=== PATIENT | male | born 1975 | race American Indian/Alaskan Native ===

== ENCOUNTER 2019-12-11 14:59 | Emergency (ER) | payer OTHER ==
[2019-12-11] MEDS ORDERED: Sodium Chloride 0.9% 1,000 ML IV SCH ×2 (15:45→17:45)
--- NOTE | 2019-12-11 17:20 | EDM.PDOC ---
ED HPI GENERAL MEDICAL PROBLEM - General Chief Complaint: Diabetic Complaint Stated Complaint: HIGH SUGAR Time Seen by Provider: 12/11/19 15:10 Source of Information: Reports: Patient History Limitations: Reports: No Limitations - History of Present Illness INITIAL COMMENTS - FREE TEXT/NARRATIVE: states he was at work when he developed blurred vision weakness and collapsed , feeling very weak has increased thirst and drinking has history of diabetes diagnoses 5yrs ago has not been taking metformin as prescribed and lisinopril and not keeping healthy diet states symptoms he had today was similar to ne he had 5yrs ago when he was initialy diagnosed with diabetes Onset: Sudden Onset Date: 12/12/19 Duration: Getting Worse Location: Reports: Generalized Quality: Reports: Burning Improves with: Reports: Medication Worsens with: Reports: Eating Context: Reports: Other (known diabetic not taking medication as prescribed) Associated Symptoms: Reports: Loss of Appetite, Malaise, Nausea/Vomiting, Weakness L shoulder Pain Score (Numeric/FACES): 5 - Related Data Allergies Allergy/AdvReac Type Severity Reaction Status Date / Time No Known Allergies Allergy Verified 12/11/19 15:12 Home Meds: Home Meds Lisinopril [Zestril] 10 mg PO DAILY #30 tablet 12/11/19 [Rx] metFORMIN HCl [Metformin HCl] 500 mg PO BID #60 tablet 12/11/19 [Rx] Past Medical History - Past Health History Medical/Surgical History: Denies Medical/Surgical History Cardiovascular History: Reports: Hypertension Neurological History: Reports: Concussion Endocrine/Metabolic History: Reports: Diabetes, Type II Other Endocrine/Metabolic History: 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 Social & Family History - Family History Family Medical History: Noncontributory - Tobacco Use Smoking Status *Q: Never Smoker - Caffeine Use Caffeine Use: Reports: Coffee, Energy Drinks, Soda - Alcohol Use Days Per Week of Alcohol Use: 3 Number of Drinks Per Day: 6 Total Drinks Per Week: 18 - Recreational Drug Use Recreational Drug Use: Yes Drug Use in Last 12 Months: No ED ROS GENERAL - Review of Systems Review Of Systems: See Below Constitutional: Reports: Malaise, Weakness HEENT: Reports: No Symptoms Respiratory: Reports: No Symptoms Cardiovascular: Reports: No Symptoms Endocrine: Reports: Fatigue ED EXAM GENERAL NO PERIP PULSE - Physical Exam Exam: See Below Exam Limited By: No Limitations General Appearance: Alert, WD/WN Eye Exam: Bilateral Eye: EOMI Ears: Normal External Exam Nose: Normal Inspection Throat/Mouth: Other (dry mucous membranes) Head: Atraumatic. No: Sinus Tenderness Neck: Supple, Non-Tender Respiratory/Chest: Lungs Clear, Normal Breath Sounds Cardiovascular: Regular Rate, Rhythm. No: No Edema GI/Abdominal: Soft, Non-Tender Back Exam: Full Range of Motion Extremities: Normal Range of Motion, No Pedal Edema Neurological: Alert, Oriented, CN II-XII Intact Skin Exam: Warm, Dry Lymphatic: No Adenopathy Course - Vital Signs Last Recorded V/S: Last Vital Signs Temp 36.9 C 12/11/19 15:05 Pulse 111 H 12/11/19 19:53 Resp 18 12/11/19 19:53 BP 144/95 H 12/11/19 19:53 Pulse Ox 100 12/11/19 19:53 - Orders/Labs/Meds Orders: Active Orders 24 hr Category Date Time Status EKG Documentation Completion [RC] ASDIRECTED Care 12/11/19 17:40 Active Glucose [Blood Glucose Check, Bedside] [RC] ONETIME Care 12/11/19 19:00 Active EKG 12 Lead [EK] Routine Ther 12/11/19 17:39 Stop Req Labs: Laboratory Tests 12/11/19 12/11/19 12/11/19 Range/Units 15:30 15:30 15:30 WBC 14.2 H (4.5-12.0) X10-3/uL RBC 3.40 L (4.30-5.75) x10(6)uL Hgb 11.4 L D (13.5-17.8) g/dL Hct 33.4 D (30.0-51.3) % MCV 98.3 H (80-96) fL MCH 33.6 (27.7-33.6) pg MCHC 34.2 (32.2-35.4) g/dL RDW 12.4 (11.5-15.5) % Plt Count 312 (125-369) X10(3)uL MPV 9.0 (7.4-10.4) fL Add Manual Diff Yes Neutrophils % (Manual) 70 (46-82) % Band Neutrophils % 6 (0-6) % Lymphocytes % (Manual) 18 (13-37) % Monocytes % (Manual) 5 (4-12) % Eosinophils % (Manual) 1 (0-5) % PT 10.3 (9.0-11.1) sec INR 1.06 (1.00-1.24) Sodium 135 (135-145) mmol/L Potassium 4.8 (3.5-5.3) mmol/L Chloride 98 L D (100-110) mmol/L Carbon Dioxide 21 (21-32) mmol/L BUN 30 H D (7-18) mg/dL Creatinine 0.8 (0.70-1.30) mg/dL Est Cr Clr Drug Dosing 111.31 mL/min Estimated GFR (MDRD) > 60 (>60) BUN/Creatinine Ratio 37.5 H (9-20) Glucose 342 H D (80-116) mg/dL Hemoglobin A1c (<5.7) % Calcium 8.0 L (8.6-10.2) mg/dL Urine Color (YELLOW) Urine Appearance (CLEAR) Urine pH (5.0-6.5) Ur Specific [place] (1.010-1.025) Urine Protein (NEGATIVE) mg/dL Urine Glucose (UA) (NORMAL) mg/dL Urine Ketones (NEGATIVE) mg/dL Urine Occult Blood (NEGATIVE) Urine Nitrite (NEGATIVE) Urine Bilirubin (NEGATIVE) Urine Urobilinogen (NEGATIVE) mg/dL Ur Leukocyte Esterase (NEGATIVE) Urine RBC (0-5) Urine WBC (0-5) Ur Squamous Epith Cells (NS,R,O) Urine Bacteria (NS) 12/11/19 12/11/19 Range/Units 15:30 17:07 WBC (4.5-12.0) X10-3/uL RBC (4.30-5.75) x10(6)uL Hgb (13.5-17.8) g/dL Hct (30.0-51.3) % MCV (80-96) fL MCH (27.7-33.6) pg MCHC (32.2-35.4) g/dL RDW (11.5-15.5) % Plt Count (125-369) X10(3)uL MPV (7.4-10.4) fL Add Manual Diff Neutrophils % (Manual) (46-82) % Band Neutrophils % (0-6) % Lymphocytes % (Manual) (13-37) % Monocytes % (Manual) (4-12) % Eosinophils % (Manual) (0-5) % PT (9.0-11.1) sec INR (1.00-1.24) Sodium (135-145) mmol/L Potassium (3.5-5.3) mmol/L Chloride (100-110) mmol/L Carbon Dioxide (21-32) mmol/L BUN (7-18) mg/dL Creatinine (0.70-1.30) mg/dL Est Cr Clr Drug Dosing mL/min Estimated GFR (MDRD) (>60) BUN/Creatinine Ratio (9-20) Glucose (80-116) mg/dL Hemoglobin A1c 9.6 H (<5.7) % Calcium (8.6-10.2) mg/dL Urine Color Yellow (YELLOW) Urine Appearance Clear (CLEAR) Urine pH 5.0 (5.0-6.5) Ur Specific [place] 1.020 (1.010-1.025) Urine Protein Negative (NEGATIVE) mg/dL Urine Glucose (UA) >1000 H (NORMAL) mg/dL Urine Ketones 50 H (NEGATIVE) mg/dL Urine Occult Blood Negative (NEGATIVE) Urine Nitrite Negative (NEGATIVE) Urine Bilirubin Negative (NEGATIVE) Urine Urobilinogen Normal (NEGATIVE) mg/dL Ur Leukocyte Esterase Negative (NEGATIVE) Urine RBC 0-5 (0-5) Urine WBC 0-5 (0-5) Ur Squamous Epith Cells Occasional (NS,R,O) Urine Bacteria Few H (NS) Meds: Medications Discontinued Medications Generic Name Dose Route Start Last Admin Trade Name Freq PRN Reason Stop Dose Admin Sodium Chloride 1,000 mls @ 999 mls/hr 12/11/19 15:45 12/11/19 16:30 Normal Saline IV 999 mls/hr ASDIRECTED INDU Administration Sodium Chloride 1,000 mls @ 999 mls/hr 12/11/19 17:45 12/11/19 18:00 Normal Saline IV 999 mls/hr ASDIRECTED IDNU Administration Insulin Human Regular 10 unit 12/11/19 17:37 12/11/19 18:24 Humulin R SUBCUT 12/11/19 17:38 10 units ONETIME ONE Administration Metformin HCl 500 mg 12/11/19 19:21 12/11/19 19:42 Glucophage PO 12/11/19 19:22 500 mg ONETIME ONE Administration - Re-Assessments/Exams Free Text/Narrative Re-Assessment/Exam: 12/11/19 19:18 pt given IVF 2 liters, SC insulin 10 units regular insulin BS decreased to 220 will be sent home on metformin and lisinopril and to FU with PCP Departure - Departure Time of Disposition: 19:20 Disposition: Home, Self-Care 01 Clinical Impression: Acute hyperglycemia, Dehydration, Blurred vision, bilateral, Syncope and collapse - Discharge Information *PRESCRIPTION DRUG MONITORING PROGRAM REVIEWED*: Not Applicable *COPY OF PRESCRIPTION DRUG MONITORING REPORT IN PATIENT KAIN: Not Applicable Prescriptions: Lisinopril [Zestril] 10 mg PO DAILY #30 tablet metFORMIN HCl [Metformin HCl] 500 mg PO BID #60 tablet Instructions: Hyperglycemia, [id number], Metformin tablets, Diabetes Mellitus and Nutrition, Adult Referrals: PCP,None [Primary Care Provider] - Forms: ED Department Discharge Additional Instructions: Activity as tolerated. Diabetic diet. Watch sugar intake. Metformin 500mg twice a day. Lisinopril 10mg daily. Follow up with your regular MD at clinic Saturday, call for time. Sepsis Event Note - Evaluation Sepsis Screening Result: No Definite Risk - Focused Exam Vital Signs: Vital Signs Pulse Resp BP Pulse Ox 12/11/19 19:53 111 H 18 144/95 H 100 12/11/19 18:50 114 H 18 147/77 H 100 Date Exam was Performed: 12/12/19 Time Exam was Performed: 06:39 - My Orders Last 24 Hours: My Active Orders 12/11/19 17:39 EKG 12 Lead [EK] Routine 12/11/19 17:40 EKG Documentation Completion [RC] ASDIRECTED 12/11/19 19:00 Glucose [Blood Glucose Check, Bedside] [RC] ONETIME - Assessment/Plan Last 24 Hours: My Active Orders 12/11/19 17:39 EKG 12 Lead [EK] Routine 12/11/19 17:40 EKG Documentation Completion [RC] ASDIRECTED 12/11/19 19:00 Glucose [Blood Glucose Check, Bedside] [RC] ONETIME
[2019-12-11] MEDS ORDERED: Insulin Regular, Human 100 Units/ML 3 ML Vial SUBCUT ONE (17:37)
[2019-12-11] MEDS ORDERED: metFORMIN 500 MG Tab PO ONE (19:21)
[2019-12-11 20:54] LABS: HEMOGLOBIN A1C 9.6 % (<5.7)
[2019-12-11 21:44] VITALS: BP 144/95; PULSE 111
== END 2019-12-11 19:55 | disposition home or self-care (01) ==
LOC: FB.ED 14:59
DX: E11.65 Type 2 diabetes mellitus with hyperglycemia (principal); E86.0 Dehydration; H53.8 Other visual disturbances; I10 Essential (primary) hypertension; Z79.84 Long term (current) use of oral hypoglycemic drugs; Z79.899 Other long term (current) drug therapy
CPT/HCPCS: 36415; 80048; 81001; 83036; 85025; 85610; 96360; 96361; 99285-25; A9270-GY; J1815-GY; J7030

== ENCOUNTER 2021-02-16 17:10 | Emergency (ER) | payer OTHER ==
[2021-02-16 17:31] VITALS: BP 131/81; PULSE 94
[2021-02-16] MEDS ORDERED: levETIRAcetam 500 MG Tab PO STA (18:33)
--- NOTE | 2021-02-16 18:33 | EDM.PDOC ---
ED HPI GENERAL MEDICAL PROBLEM - General Chief Complaint: Neurological Problem Stated Complaint: SEZIURES Time Seen by Provider: 02/16/21 17:15 Source of Information: Reports: Patient History Limitations: Reports: No Limitations - History of Present Illness INITIAL COMMENTS - FREE TEXT/NARRATIVE: Patient presented to the ED via EMS because of a witnessed seizure while at work. He has generalized body jerking for 2 minutes. There was no post ictal confusion or headache. He drinks on a daily basis, denies having any street drug use. 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 Social & Family History - Family History Family Medical History: No Pertinent Family History - Caffeine Use Caffeine Use: Reports: Coffee, Energy Drinks, Soda ED ROS GENERAL - Review of Systems Review Of Systems: See Below Constitutional: Reports: No Symptoms HEENT: Reports: No Symptoms Respiratory: Reports: No Symptoms Cardiovascular: Reports: No Symptoms Endocrine: Reports: No Symptoms GI/Abdominal: Reports: No Symptoms : Reports: No Symptoms Musculoskeletal: Reports: No Symptoms Skin: Reports: No Symptoms Neurological: Reports: Seizure Psychiatric: Reports: No Symptoms Hematologic/Lymphatic: Reports: No Symptoms ED EXAM, NEURO - Physical Exam Exam: See Below Exam Limited By: No Limitations General Appearance: Alert, No Apparent Distress Eye Exam: Bilateral Eye: PERRL Ears: Normal External Exam, Normal Canal Nose: Normal Inspection, Normal Mucosa, No Blood Throat/Mouth: Normal Inspection, Normal Lips, Normal Teeth Head Exam: Atraumatic, Normocephalic Neck: Normal Inspection, Supple, Non-Tender, Full Range of Motion Respiratory/Chest: No Respiratory Distress, Lungs Clear, Normal Breath Sounds Cardiovascular: Normal Peripheral Pulses, Regular Rate, Rhythm, No Edema, No Gallop, No JVD, No Murmur GI/Abdominal: Normal Bowel Sounds, Soft, Non-Tender, No Organomegaly Neurological: Alert, Normal Mood/Affect, Normal Dorsiflexion, CN II-XII Intact, Normal Plantar Flexion, Normal Gait Course - Vital Signs Text/Narrative:: Lab and Head CT result was reviewed and discussed with patient Keppra 1000 mg PO x1 Last Recorded V/S: Last Vital Signs Temp 36.8 C 02/16/21 17:10 Pulse 94 02/16/21 17:10 Resp 20 02/16/21 17:10 BP 131/81 02/16/21 17:10 Pulse Ox 100 02/16/21 17:10 - Orders/Labs/Meds Orders: Active Orders 24 hr Category Date Time Status Head wo Cont [CT] Stat Exams 02/16/21 17:28 Taken Labs: Laboratory Tests 02/16/21 02/16/21 02/16/21 Range/Units 17:35 17:35 17:35 WBC 10.6 H (3.2-10.1) x10-3/uL RBC 4.31 (3.90-5.90) x10(6)uL Hgb 12.4 L (12.9-17.7) g/dL Hct 37.9 L (38.3-50.1) % MCV 88.0 (80.8-98.7) fL MCH 28.8 (27.0-33.3) pg MCHC 32.8 (28.7-35.3) g/dL RDW 15.6 H (12.4-15.0) % Plt Count 321 (117-477) x10(3)uL MPV 8.5 (6.7-11.0) fL Neut % (Auto) 64.4 (40.3-71.8) % Lymph % (Auto) 19.7 (15.8-45.3) % [place] % (Auto) 12.9 (5.5-15.2) % Eos % (Auto) 2.2 (0.1-6.8) % Baso % (Auto) 0.8 (0.3-3.8) % Neut # (Auto) 6.8 (1.7-6.9) x10-3/uL Lymph # (Auto) 2.1 (0.5-4.5) x10-3/uL [place] # (Auto) 1.4 H (0.0-1.2) x10-3/uL Eos # (Auto) 0.2 (0.0-0.6) x10-3/uL Baso # (Auto) 0.1 (0.0-0.3) x10-3/uL Sodium 128 L (135-145) mmol/L Potassium 3.8 D (3.5-5.3) mmol/L Chloride 93 L D (100-110) mmol/L Carbon Dioxide 20 L (21-32) mmol/L BUN 10 D (7-18) mg/dL Creatinine 1.2 (0.70-1.30) mg/dL Est Cr Clr Drug Dosing 73.44 mL/min Estimated GFR (MDRD) > 60 (>60) BUN/Creatinine Ratio 8.3 L (9-20) Glucose 182 H D (80-116) mg/dL Calcium 8.2 L (8.6-10.2) mg/dL Total Bilirubin 0.7 (0.1-1.3) mg/dL AST 319 H* D (5-25) IU/L ALT 258 H* D (12-36) U/L Alkaline Phosphatase 91 (56-112) IU/L Total Protein 7.3 (6.0-8.0) g/dL Albumin 3.7 (3.5-5.2) g/dL Globulin 3.6 g/dL Albumin/Globulin Ratio 1.0 Urine Opiates Screen (NEGATIVE) Ur Oxycodone Screen (NEGATIVE) Ur Propoxyphene Screen (NEGATIVE) Ur Barbituates Screen (NEGATIVE) Ur Tricyclics Screen (NEGATIVE) Ur Phencyclidine Scrn (NEGATIVE) Ur Amphetamine Screen (NEGATIVE) Urine MDMA Screen (NEGATIVE) U Benzodiazepines Scrn (NEGATIVE) U Cocaine Metab Screen (NEGATIVE) U Marijuana (THC) Screen (NEGATIVE) Ethyl Alcohol < 0.03 (<0.03) % 02/16/21 Range/Units 18:10 WBC (3.2-10.1) x10-3/uL RBC (3.90-5.90) x10(6)uL Hgb (12.9-17.7) g/dL Hct (38.3-50.1) % MCV (80.8-98.7) fL MCH (27.0-33.3) pg MCHC (28.7-35.3) g/dL RDW (12.4-15.0) % Plt Count (117-477) x10(3)uL MPV (6.7-11.0) fL Neut % (Auto) (40.3-71.8) % Lymph % (Auto) (15.8-45.3) % [place] % (Auto) (5.5-15.2) % Eos % (Auto) (0.1-6.8) % Baso % (Auto) (0.3-3.8) % Neut # (Auto) (1.7-6.9) x10-3/uL Lymph # (Auto) (0.5-4.5) x10-3/uL [place] # (Auto) (0.0-1.2) x10-3/uL Eos # (Auto) (0.0-0.6) x10-3/uL Baso # (Auto) (0.0-0.3) x10-3/uL Sodium (135-145) mmol/L Potassium (3.5-5.3) mmol/L Chloride (100-110) mmol/L Carbon Dioxide (21-32) mmol/L BUN (7-18) mg/dL Creatinine (0.70-1.30) mg/dL Est Cr Clr Drug Dosing mL/min Estimated GFR (MDRD) (>60) BUN/Creatinine Ratio (9-20) Glucose (80-116) mg/dL Calcium (8.6-10.2) mg/dL Total Bilirubin (0.1-1.3) mg/dL AST (5-25) IU/L ALT (12-36) U/L Alkaline Phosphatase (56-112) IU/L Total Protein (6.0-8.0) g/dL Albumin (3.5-5.2) g/dL Globulin g/dL Albumin/Globulin Ratio Urine Opiates Screen Negative (NEGATIVE) Ur Oxycodone Screen Negative (NEGATIVE) Ur Propoxyphene Screen Negative (NEGATIVE) Ur Barbituates Screen Negative (NEGATIVE) Ur Tricyclics Screen Negative (NEGATIVE) Ur Phencyclidine Scrn Negative (NEGATIVE) Ur Amphetamine Screen Negative (NEGATIVE) Urine MDMA Screen Negative (NEGATIVE) U Benzodiazepines Scrn Negative (NEGATIVE) U Cocaine Metab Screen Negative (NEGATIVE) U Marijuana (THC) Screen Negative (NEGATIVE) Ethyl Alcohol (<0.03) % Meds: Medications Discontinued Medications Generic Name Dose Route Start Last Admin Trade Name Freq PRN Reason Stop Dose Admin Levetiracetam 1,000 mg 02/16/21 18:33 02/16/21 18:39 Levetiracetam 500 Mg Tab PO 02/16/21 18:34 1,000 mg NOW STA Administration Departure - Departure Time of Disposition: 19:00 Disposition: Home, Self-Care 01 Condition: Good Clinical Impression: Seizure, Alcoholic liver disease - Discharge Information Instructions: Alcoholic Liver Disease, [id number], Seizure, Adult, [id number] Referrals: PCP,None [Primary Care Provider] - Forms: ED Department Discharge Additional Instructions: Please read discharge instructions on Seizure and Alcoholic Liver Disease Try to quit drinking Take keppra 500 mg twice daily until you se the neurologist Follow up with a primary doctor who can refer you to see a neurologist(brains specialist) [place] Sepsis Event Note (ED) - Evaluation Sepsis Screening Result: No Definite Risk - Focused Exam Vital Signs: Vital Signs Temp Pulse Resp BP Pulse Ox 02/16/21 17:10 36.8 C 94 20 131/81 100 - My Orders Last 24 Hours: My Active Orders 02/16/21 17:28 Head wo Cont [CT] Stat - Assessment/Plan Last 24 Hours: My Active Orders 02/16/21 17:28 Head wo Cont [CT] Stat
== END 2021-02-16 19:40 | disposition home or self-care (01) ==
LOC: FB.ED 17:10
DX: R56.9 Unspecified convulsions (principal); K70.9 Alcoholic liver disease, unspecified; I10 Essential (primary) hypertension; E11.9 Type 2 diabetes mellitus without complications; Z79.84 Long term (current) use of oral hypoglycemic drugs; Z79.899 Other long term (current) drug therapy
CPT/HCPCS: 36415; 70450; 80053; 80305; 80307; 85025; 99285; A9270